=== PATIENT | female | born 1950 | race Caucasian/White ===

== ENCOUNTER 2021-10-11 14:45 | Emergency (ER) | payer MEDICARE, OTHER ==
[2021-10-11 15:22] LABS: HEMOGLOBIN 13.8 gm/dl (12.3-15.3); RED BLOOD COUNT 4.42 M/UL (4.00-5.10); WHITE BLOOD COUNT 4.6 K/UL (4.5-11.0)
[2021-10-11] MEDS ORDERED: ASPIRIN CHEWABL81 MG PO (17:34)
== END 2021-10-11 20:25 | disposition home or self-care (01) ==
LOC: ER1 14:45
PROVIDERS: Nurse Practitioner
DX: U07.1 COVID-19 (principal)
CPT/HCPCS: 71045; 80053; 81001; 85025; 99285; M0243; U0002

== ENCOUNTER → 2022-02-14 | Outpatient (CLI) | payer OTHER ==
[~2022-02-14] MED LIST: ASPIRIN CHEWABL81 MG PO
== END ==
LOC: EMI 15:02
DX: R20.2 Paresthesia of skin (principal); G31.9 Degenerative disease of nervous system, unspecified
CPT/HCPCS: 70551